=== PATIENT | female | born 1975 | race Caucasian/White ===

== ENCOUNTER 2019-01-13 23:30 | Emergency (ER) | payer SELFPAY ==
[~2019-01-13] VITALS: Ht 160 cm; Wt 69.4 kg
[2019-01-13 23:34] VITALS: BP 102/61; PULSE 64; RESP 16; Ht 160 cm; Wt 69.4 kg
[2019-01-14] MEDS ORDERED: ACETAMINOPHEN 325 MG TAB PO ONE (01:00)
--- NOTE | 2019-01-14 01:05 | ERD ---
ER Documentation Chief Complaint Chief Complaint hit in head by machine @ work. no KO HPI Patient is a 43 years old female with no known PMHx presenting to the clinic for head trauma x 3 hours ago. Patient reports while working, a 26lb object fell from the shelf onto the left side of her scalp. Patient states the object was 1 foot high from her head on a shelf. Patient denies LOC, Confusion, nausea, emesis. Patient denies taking any OTC medication. Patient reports of bleeding. ROS All systems reviewed and are negative except as per history of present illness. Medications Home Meds Active Scripts Bacitracin* (Bacitracin Zinc Oint*) 28.35 Gm Oint, 1 APPLIC TOP BID for 7 Days, TUB APPLI TO Prov:LALO SHAFER PA-C 01/14/19 Acetaminophen* (Tylophen*) 500 Mg Capsule, 1 CAP PO Q6H PRN for PAIN AND OR ELEVATED TEMP, #20 CAP Prov:LALO SHAFER PA-C 01/14/19 Allergies Allergies: Coded Allergies: No Known Allergy (Unverified , 01/14/19) PMhx/Soc Medical and Surgical Hx: pt denies Medical Hx, pt denies Surgical Hx History of Surgery: No Anesthesia Reaction: No Hx Neurological Disorder: No Hx Respiratory Disorders: No Hx Cardiac Disorders: No Hx Psychiatric Problems: No Hx Miscellaneous Medical Probl: No FmHx Family History: No diabetes, No coronary disease, No other Physical Exam Vitals Vital Signs Date Temp Pulse Resp B/P (MAP) Pulse Ox O2 O2 Flow FiO2 Time Delivery Rate 01/13/19 98.2 64 16 102/61 98 23:34 (75) Physical Exam Const: No acute distress Head: Small skin abrasion without active bleeding on left side of scalp. Eyes: Normal Conjunctiva. PERRLA. No nystagmus. Neck: Full range of motion. No meningismus. Resp: Clear to auscultation bilaterally Cardio: Regular rate and rhythm, no murmurs Neur: Awake and alert. CNII-XII intact. 5/5 upper & lower extremity strength. Psych: Normal Mood and Affect Results 24 hrs Current Medications Medications Dose Sig/Ricky Start Time Status Last (Trade) Ordered Route PRN Stop Time Admin Dose Reason Admin 650 mg ONCE ONCE 01/14/19 DC 01/14/19 Acetaminophen PO 01:00 02:03 (Tylenol 01/14/19 01:01 Tab) Procedures/MDM Patient was seen and evaluated for head trauma. Patient shows no signs of intracranial hemorrhage, therefore no head CT required for today's visit. Patient has an unremarkable neurological exam. Wound cleaning was performed with NS. Patient tolerated the procedure well. No sutures required. Patient is stable and ready for discharge. F/U with PCP. Departure Diagnosis: Primary Impression: Acute head injury without loss of consciousness Encounter type: initial encounter Qualified Codes: S09.90XA - Unspecified injury of head, initial encounter Condition: Stable Patient Instructions: Head Trauma (Traumatic Brain Injury) Referrals: [facility] Additional Instructions: Paciente aconseja volver a Departamento de urgencias inmediatamente para sntomas nuevos o que empeoran . Paciente aconseja posteriores con el PCP en 2-3 holland . Paciente verbaliza la comprehensin y est de acuerdo con el tratamiento y el curso de accin. Si el paciente no tiene ninguna de atencin primaria pueden seguir con [facility] [id number] [place] [address] o [facility] + [address] [address] LALO SHAFER PA-C Jan 14, 2019 01:05
[2019-01-14] MEDS ORDERED: BACI28.34 TOP (01:06)
[2019-01-14] MEDS ORDERED: ACET500C5 PO (01:06)
== END 2019-01-14 03:10 | disposition home or self-care (01) ==
LOC: FTE 23:30
DX: S00.01XA Abrasion of scalp, initial encounter (principal); W01.198A Fall on same level from slipping, tripping and stumbling with subsequent striking against other object, initial encounter; Y92.9 Unspecified place or not applicable
CPT/HCPCS: 99283